=== PATIENT | female | born 1990 | race Caucasian/White ===

== ENCOUNTER 2024-03-22 13:44 | Inpatient (IN) | payer OTHER ==
[~2024-03-22] VITALS: Ht 165.1 cm; Wt 78.0 kg
[2024-03-22] VITALS (7 sets, daily range): BP systolic 90–116; BP diastolic 50–69
[2024-03-22] MEDS ORDERED: PRENATAL PLUS1 EAC2 PO (14:31)
[2024-03-22] MEDS ORDERED: AMPICILLIN SODIUM 2,000 MG VIAL IV SCH (14:47)
[2024-03-22 14:49] LABS: PH,URINE 5.5 (5.0-8.0); URINE APPEARANCE Cloudy; URINE BILIRRUBIN Negative (NEGATIVE); URINE BLOOD Small; URINE COLOR Yellow; URINE GLUCOSE Negative (NEGATIVE); URINE LEUKOCYTE Large; URINE NITRATE Negative; URINE PROTEIN Negative (NEGATIVE); URINE UROBILINOGEN 0.2 E.U./dl
[2024-03-22 14:52] LABS: URINE BACTERIA 811.3 uL (0.0-1933); URINE EPITHELIAL CELLS 24.1 uL (0.0-38.8); URINE RBC 37.7 uL (0.0-20.8); URINE WBC 991.9 uL (0.0-23.2)
[2024-03-22 14:53] LABS: HEMATOCRIT 33.1 % (36.0-45.00); HEMOGLOBIN 11.2 g/dL (12.0-15.00); MEAN CELL VOLUME 93.8 fL (80.00-100.00); MEAN CORPUSCULAR HEMOGLOBIN 31.6 pg (27.00-32.0); MEAN CORPUSCULAR HGB CONC 33.7 g/dl (32.0-36.0); PLATELET COUNT 318 K/uL (150-450); RED BLOOD COUNT 3.53 M/uL (4.00-6.00); RED CELL DISTRIBUTION WIDTH 12.8 % (11.5-14.5)
[2024-03-22] MEDS ORDERED: RINGERS SOLUTION,LACTATED 1,000 ML IV SCH (15:00)
[2024-03-22 15:16] LABS: URINE CAST 0.61 uL (0.0-1.40); URINE KETONE 40 (NEGATIVE)
[2024-03-22 15:53] LABS: BILIRUBIN TOTAL 0.55 mg/dL (0.3-1.2); CALCIUM 9.3 mg/dL (8.5-10.1); CREATININE SERUM 0.53 mg/dL (0.55-1.02); GFR 133.68; GLOBULINA 3.7 G/DL (2.4-3.5); POTASSIUM 4.03 mEq/L (3.5-5.1); TOTAL PROTEIN 6.7 gm/dL (6.4-8.2)
[2024-03-22 16:18] LABS: INR 1.02; PROTHROMBIN TIME 11.1 SECONDS (9.0-11.5)
[2024-03-22] MEDS ORDERED: GENTAMICIN SULFATE 40 MG/ML VIAL IV SCH (18:52)
[2024-03-22] MEDS ORDERED: OXYTOCIN 1,000 ML IV SCH (19:00)
[2024-03-22] MEDS ORDERED: IBUprofen 400 MG TABLET PO PRN (19:00)
[2024-03-22] MEDS ORDERED: CHLORHEXIDINE GLUCONATE 120 ML BOTTLE TP SCH (19:00)
[2024-03-22] MEDS ORDERED: METHYLERGONOVINE MALEATE 0.2 MG/ML AMPUL IM SCH (19:00)
[2024-03-23 01:44] VITALS: BP 89/54; O2SAT 97
[2024-03-23] MEDS ORDERED: GENTAMICIN SULFATE 40 MG/ML VIAL IV SCH (05:00)
[2024-03-23 06:43] VITALS: BP 87/51; O2SAT 98
[2024-03-23 08:00] VITALS: BP 94/55; O2SAT 100
[2024-03-23 18:04] VITALS: BP 99/55; O2SAT 100
[2024-03-24 01:18] VITALS: BP 85/55; O2SAT 100
[2024-03-24 07:53] VITALS: BP 115/69; O2SAT 97
[2024-03-24] MEDS ORDERED: AMOX1TAB5 PO (08:33)
[2024-03-24] MEDS ORDERED: NAPR500T14 PO (08:33)
== END 2024-03-24 10:14 | disposition home or self-care (01) | DRG 805 ==
LOC: LDR 13:44 → SURG 20:59
PROVIDERS: ADMIT Obstetrics & Gynecology; ATTEND Obstetrics & Gynecology
PROC: 10E0XZZ Delivery of Products of Conception, External Approach (ICD-10-PCS; principal; 2024-03-22)
PROC: 4A1HXCZ Monitoring of Products of Conception, Cardiac Rate, External Approach (ICD-10-PCS; 2024-03-22)
PROC: BY4CZZZ Ultrasonography of Second Trimester, Single Fetus (ICD-10-PCS; 2024-03-22)
PROC: BU4CZZZ Ultrasonography of Uterus and Ovaries (ICD-10-PCS; 2024-03-22)
DX: O60.12X0 Preterm labor second trimester with preterm delivery second trimester, not applicable or unspecified (principal); O41.1220 Chorioamnionitis, second trimester, not applicable or unspecified; Z37.1 Single stillbirth; O41.1420 Placentitis, second trimester, not applicable or unspecified; O44.02 Complete placenta previa NOS or without hemorrhage, second trimester; O26.872 Cervical shortening, second trimester; O35.3XX0 Maternal care for (suspected) damage to fetus from viral disease in mother, not applicable or unspecified; Z3A.22 22 weeks gestation of pregnancy; Z20.822 Contact with and (suspected) exposure to COVID-19